=== PATIENT | female | born 1965 | race Caucasian/White ===

== ENCOUNTER 2022-12-23 12:10 | Emergency (ER) | payer BC ==
[~2022-12-23] VITALS: Ht 167.6 cm; Wt 55.8 kg
[2022-12-23] MEDS ORDERED: ondansetron/PF 4mg/2ml inj IV ONE (12:25)
[2022-12-23] MEDS ORDERED: morphine 2 MG/ML inj. syringe IV ONE ×2 (12:25→14:05)
[2022-12-23] MEDS ORDERED: normal saline 1000ml 1,000 ML IV ONE (12:25)
[2022-12-23 12:50] LABS: BASOPHILS # (AUTO) 0.1 X10'3 (0-0.2); BASOPHILS % (AUTO) 0.4 % (0-1); EOSINOPHILS % (AUTO) 0.2 % (0-6); HEMATOCRIT 32.5 % (35.0-45.0); HEMOGLOBIN 10.3 g/dl (12.0-16.0); LYMPHOCYTES % (AUTO) 7.2 % (21-51); MEAN CORPUSCULAR HEMOGLOBIN 25.6 PG (27.0-31.0); MEAN CORPUSCULAR HGB CONC 31.6 g/dL (33.0-36.5); MEAN CORPUSCULAR VOLUME 81.2 FL (78-98); MEAN PLATELET VOLUME 8.6 FL (7.4-10.4); MONOCYTES # (AUTO) 0.5 X10'3 (0-0.9); NEUTROPHILS # (AUTO) 11.9 X10'3 (1.8-7.7); NEUTROPHILS % (AUTO) 88.2 % (42-75); PLATELET COUNT 353 X10'3 (140-440); RED CELL DISTRIBUTION WIDTH 17.6 % (11.5-14.5); WHITE BLOOD COUNT 13.5 X10'3 (4.5-11.0)
[2022-12-23 12:57] LABS: ALANINE AMINOTRANSFERASE 19 U/L (12-78); ALBUMIN 4.4 G/DL (3.4-5.0); ALBUMIN/GLOBULIN RATIO 1.3 (1.1-1.5); ALKALINE PHOSPHATASE 110 IU/L (46-116); ANION GAP 12 (8-16); ASPARTATE AMINO TRANSFERASE 21 U/L (10-37); BILIRUBIN,TOTAL 0.8 MG/DL (0.1-1.0); BLOOD UREA NITROGEN 13 MG/DL (7-18); BUN/CREATININE RATIO 15.9 (10.0-20.0); CALCIUM 10.4 MG/DL (8.5-10.1); CHLORIDE 103 MMOL/L (99-107); CREATININE 0.82 MG/DL (0.40-0.90); GLUCOSE 116 MG/DL (70-104); LIPASE 63 U/L (73-393); POTASSIUM 3.6 MMOL/L (3.5-5.1); SODIUM 139 MMOL/L (135-145); TOTAL CARBON DIOXIDE 24.3 MMOL/L (24-32); TOTAL PROTEIN 7.7 G/DL (6.4-8.2); eGFR 72 ML/MIN
[2022-12-23] MEDS ORDERED: iohexol 300mg/ml 100ml inj. ONE (13:58)
--- NOTE | 2022-12-23 14:00 | NUR ---
PER DR BALLARD ORDER 2MG MORPHINE AND 5MG REGLAN FOR PAIN AND NAUSEA. ORDERS ENTERED.
[2022-12-23] MEDS ORDERED: metoclopramide 5 mg/ml inj IV ONE (14:05)
[2022-12-23 14:39] LABS: BETA HCG,QUANTITATIVE 2 mIU/ml
[2022-12-23 16:01] LABS: CLARITY,URINE CLEAR (Clear); COLOR,URINE YELLOW (Yellow); GLUCOSE, URINE NEGATIVE (Neg); KETONES,URINE 15 mg/dl (Neg); LEUKOCYTE ESTERASE ,URINE NEGATIVE (Neg); NITRITES, URINE NEGATIVE (Neg); OCCULT BLOOD,URINE TRACE-INTACT (Neg); PH,URINE 7.5 (4.8-8.0); PROTEIN,URINE NEGATIVE (Neg); UA COLLECTION TYPE CLN CATCH MIDSTREAM; UROBILINOGEN,URINE 0.2 E.U/dL (0.2-1.0)
[2022-12-23 16:13] LABS: BACTERIA,URINE 1+ /HPF (Neg); SQUAMOUS EPITHELIAL CELL,UR FEW /LPF (FEW)
[2022-12-23] MEDS ORDERED: CefTRIAXone/D5W-Rocephin 1gm 50 ML IV ONE (16:20)
[2022-12-23] MEDS ORDERED: dicyclomine 10 MG capsule PO ONE (16:45)
[2022-12-23] MEDS ORDERED: normal saline 1000ML IV soln IVB ONE (16:45)
[2022-12-23] MEDS ORDERED: morphine 4 MG/ML inj SYRINge IV ONE (16:55)
[2022-12-23] MEDS ORDERED: ONDA4TAB12 PO (18:07)
[2022-12-23] MEDS ORDERED: DICY10CA88 PO (18:07)
[2022-12-23 18:20] VITALS: BP 127/59
== END 2022-12-23 18:22 | disposition home or self-care (01) ==
LOC: ER 12:12
DX: R10.9 Unspecified abdominal pain (principal); R11.2 Nausea with vomiting, unspecified; Z90.710 Acquired absence of both cervix and uterus
CPT/HCPCS: 36415; 74018; 74177; 80053; 81001; 83605; 83690; 84145; 84702; 85025; 87088; 87186; 96361; 96365; 96375; 96376; 99285; J0696; J2270; J2405; J2765; J3490; J7030; Q9967; 87077

== ENCOUNTER 2025-02-19 09:11 | Inpatient (IN) | payer BC ==
[~2025-02-19] VITALS: Ht 167.6 cm; Wt 66.1 kg
[~2025-02-19 09:11] MED LIST: ONDA-243 PO
[2025-02-19 09:51] LABS: BILIRUBIN,URINE SMALL (Neg); CLARITY,URINE CLOUDY (Clear); GLUCOSE, URINE NEGATIVE (Neg); KETONES,URINE 15 mg/dl (Neg); LEUKOCYTE ESTERASE ,URINE NEGATIVE (Neg); OCCULT BLOOD,URINE SMALL (Neg); PH,URINE 5.5 (4.8-8.0); PROTEIN,URINE 100 mg/dl (Neg)
[2025-02-19 09:55] LABS: COLOR,URINE AMBER (Yellow); UA COLLECTION TYPE CLN CATCH MIDSTREAM
[2025-02-19 09:56] LABS: NITRITES, URINE NEGATIVE (Neg)
[2025-02-19 09:57] LABS: AMORPHOUS URATES 1+; BACTERIA,URINE FEW /HPF (Neg); MUCUS STRANDS MANY /LPF (Neg); RBC,URINE 0-2 /HPF (0-2); SQUAMOUS EPITHELIAL CELL,UR FEW /LPF (FEW); WBC,URINE 0-4 /HPF (0-4)
[2025-02-19 09:58] LABS: FINE GRANULAR CAST 0-3 /LPF (NEGATIVE); HYALINE CASTS 0-3 /LPF (NEGATIVE)
[2025-02-19] MEDS: acetaminophen 325mg tablet PO ONE (10:01)
[2025-02-19 10:02] LABS: BASOPHILS % (AUTO) 0.2 % (0-1); EOSINOPHILS % (AUTO) 0.2 % (0-6); HEMATOCRIT 28.8 % (35.0-45.0); HEMOGLOBIN 9.8 g/dl (12.0-16.0); LYMPHOCYTES # (AUTO) 0.6 X10'3 (1.1-4.8); LYMPHOCYTES % (AUTO) 7.7 % (21-51); MEAN CORPUSCULAR HEMOGLOBIN 28.6 PG (27.0-31.0); MEAN CORPUSCULAR HGB CONC 33.9 g/dL (33.0-36.5); MEAN CORPUSCULAR VOLUME 84.2 FL (78-98); MEAN PLATELET VOLUME 7.5 FL (7.4-10.4); MONOCYTES # (AUTO) 0.6 X10'3 (0-0.9); MONOCYTES % (AUTO) 7.7 % (2-12); NEUTROPHILS # (AUTO) 6.5 X10'3 (1.8-7.7); NEUTROPHILS % (AUTO) 84.2 % (42-75); PLATELET COUNT 307 X10'3 (140-440); RED BLOOD COUNT 3.42 X10'6 (4.20-5.60); RED CELL DISTRIBUTION WIDTH 15.8 % (11.5-14.5); WHITE BLOOD COUNT 7.7 X10'3 (4.5-11.0)
[2025-02-19 10:08] LABS: ANION GAP 9 (8-16); BLOOD UREA NITROGEN 14 MG/DL (7-18); BUN/CREATININE RATIO 15.7 (10.0-20.0); CALCIUM 9.9 MG/DL (8.5-10.1); CHLORIDE 100 MMOL/L (99-107); CREATININE 0.89 MG/DL (0.40-0.90); GLUCOSE 120 MG/DL (70-104); POTASSIUM 3.9 MMOL/L (3.5-5.1); SODIUM 134 MMOL/L (135-145); TOTAL CARBON DIOXIDE 24.9 MMOL/L (24-32); eCRCL 65 ML/MIN; eGFR 65 ML/MIN
--- NOTE | 2025-02-19 10:08 | RADIOLOGY REPORT ---
CHEST XRAY: 1 view(s) was obtained HISTORY: sepsis alert COMPARISON: None. FINDINGS: Streaky right lower lobe and right upper lobe opacities. Heart border is normal in size. Minimal calc ification of the aortic arch. No acute osseus abnormality. IMPRESSION: 1. Multifocal bronchopneumonia, most notable in the right lower lobe
--- NOTE | 2025-02-19 10:35 | Physician Documentation ---
History of Present Illness ~ Chief Complaint: Flu Symptoms Stated Complaint: FLU SYMPTOMS Time Seen by MD: 10:13 Primary Medical Doctor: NO PCP Mode of Arrival: POV HPI This is a 59-year-old female who presents with three weeks of progressively worsening cough, nasal congestion and rhinorrhea, body aches, headache, and fever with chills and night sweats. Medication Reconciliation Allergies: Coded Allergies: No Known Allergies (Unverified , 02/19/25) Miscellaneous Medications Home Med List (No Home Medications), (Reported) Discontinued Medications ONDANSETRON ODT 4mg tablet (Ondansetron Odt), 1 TABLET PO TID Discontinued Reason: patient no longer taking Past Medical History Past Medical History: No Pertinent History, Anemia Past Surgical History: hysterectomy Drug Use: none Lives In: Home Review of Systems ROS Cough and fever as stated above in the HPI, otherwise all systems are reviewed and negative. Physical Exam Vital Signs: Temperature: 101.1, Source: Temporal, Heart Rate: 108, Respiratory Rate: 19, BP: 119/66, Pulse Oximetry: 99, Weight: 65.750 Oxygen Flow Rate: 0 Physical Exam VITALS: Reviewed and as above. GENERAL: Alert, nontoxic appearing, no apparent distress. HEENT: PERRLA, EOMI, no cervical lymphadenopathy RESPIRATORY: No increased work of breathing, no respiratory distress, speaking in full clear sentences, rhonchi in right lower lung field CV: Regular rate and rhythm no murmur BACK: No CVA tenderness SKIN: Hot to the touch, no rash Progress Progress Note At 10:47 I spoke with hospitalist attending Dr. Mcnulty who kindly accepts patient for admission Results/Orders Results/Orders Orders - MARIE ANDRES Hospitalist (02/19/25 10:41) Fill Out Med Reconciliation (02/19/25 10:41) Completed Orders - MARIE ANDRES Normal Saline 1000ml (Sodium Chloride 10 (02/19/25 10:25) Azithromycin/Ns 500mg/250ml (Zithromax/N (02/19/25 10:25) Ceftriaxone/G7y-[id number] 1gm (Rocephin 1 (02/19/25 10:25) Vital Signs 02/19/25 02/19/25 02/19/25 09:14 10:06 10:09 Temp 101.1 101.1 Pulse 121 108 Resp 22 19 19 B/P (MAP) 145/61 119/66 (83) Pulse Ox 98 99 O2 Flow Rate 0 0 Laboratory Tests Test 02/19/25 09:26 02/19/25 09:42 02/19/25 09:47 Urine Specimen Description Cln catch midstream Urine Color Alexia Urine Clarity Cloudy Urine pH 5.5 Urine Specific Mobile >=1.030 Urine Protein 100 H Urine Glucose (UA) Negative Urine Ketones 15 H Urine Occult Blood Small Urine Nitrite Negative Urine Bilirubin Small Urine Urobilinogen 1.0 Urine Leukocyte Esterase Negative Urine RBC 0-2 Urine WBC 0-4 Urine Squamous Epithelial Cells Few Urine Amorphous Urates 1+ Urine Bacteria Few Urine Hyaline Casts 0-3 Urine Fine Granular Casts 0-3 Urine Mucus Many Urine Culture Indicated Not ind Volume Urine Centrifuged 10 ml Urine Comment Urine Opiates Screen Negative Urine Methadone Screen Negative Urine Fentanyl Screen Negative Urine Barbiturates Screen Negative Urine Phencyclidine Screen Negative Urine Amphetamines Screen Negative Urine Benzodiazepines Screen Negative Urine Cocaine Screen Negative Urine Cannabinoids Screen Negative Drug Screen Comment SARS-CoV-2 Antigen (Rapid) Negative White Blood Count 7.7 Red Blood Count 3.42 L Hemoglobin 9.8 L Hematocrit 28.8 L Mean Corpuscular Volume 84.2 Mean Corpuscular Hemoglobin 28.6 Mean Corpuscular Hemoglobin Concent 33.9 Red Cell Distribution Width 15.8 H Platelet Count 307 Mean Platelet Volume 7.5 Neutrophils (%) (Auto) 84.2 H Lymphocytes (%) (Auto) 7.7 L Monocytes (%) (Auto) 7.7 Eosinophils (%) (Auto) 0.2 Basophils (%) (Auto) 0.2 Neutrophils # (Auto) 6.5 Lymphocytes # (Auto) 0.6 L Monocytes # (Auto) 0.6 Eosinophils # (Auto) 0.0 Basophils # (Auto) 0.0 CBC Comment Sodium Level 134 L Potassium Level 3.9 Chloride Level 100 Carbon Dioxide Level 24.9 Anion Gap 9 Blood Urea Nitrogen 14 Creatinine 0.89 Estimated GFR/1.73 m2 65 BUN/Creatinine Ratio 15.7 Glucose Level 120 H Lactic Acid Level 1.9 Calcium Level 9.9 Albumin 3.0 L Procalcitonin 2.39 H Chemistry Comments Microbiology Date/Time Source Procedure Growth Status 02/19/25 09:50 Blood Arm Left Blood Culture - Preliminary NEGATIVE (LESS THAN 24 HOURS) Resulted EKG/XRAY/CT/US/VASC/MRI Chest X-Ray : Additional Comments CHEST XRAY: 1 view(s) was obtained HISTORY: sepsis alert COMPARISON: None. FINDINGS: Streaky right lower lobe and right upper lobe opacities. Heart border is normal in size. Minimal calcification of the aortic arch. No acute osseus abnormality. IMPRESSION: 1. Multifocal bronchopneumonia, most notable in the right lower lobe Electronically Signed by:IBIS PANTOJA MD Date & Time: 02/19/25 100 Dictated by: IBIS PANTOJA MD Dictation date and time: 02/19/25937 I have reviewed and agree with the radiology report. I have reviewed and interpreted the imaging as: Focal consolidations in right lower lung little Medical Decision Making Findings This is a previously well 59-year-old female who presents with three weeks of progressively worsening cough, nasal congestion, rhinorrhea, body aches, and fever. Physical exam demonstrated rhonchi in right lower lung little along with x-ray of chest demonstrating focal consolidations in right lower lung little consistent with pneumonia. On exam patient tachycardic, patient would benefit from inpatient admission for IV antibiotics. Prior to admission patient is hemodynamically stable in the emergency department without evidence of hypoxia. Inpatient team contacted and kindly accepts patient for admission. Differential Dx:Considerations: Include: Influenza, Meningitis, Mycardial infarction, Respiratory failure, Sepsis, UTI, Viral Syndrome Departure Disposition: ADMITTED INPATIENT Admitted to Inpatient Unit: to hospitalist Impression: Primary Impression: Pneumonia Qualified Codes: J18.9 - Pneumonia, unspecified organism Condition: Guarded Referrals: NO PRIMARY CARE PROVIDER (PCP) Education Educated: Patient Educated regarding: diagnosis, treatment Signature Scribe Signature: No scribe Attestation: The note accurately reflects work and decisions made by me.GERMAN Koch 02/19/25 21:27 MARIE ANDRES Feb 19, 2025 10:35
[2025-02-19] MEDS ORDERED: magnesium Cl slow-release 64mg tablet PO PRN (10:50)
[2025-02-19] MEDS ORDERED: magnesium sulf-water 2g/50mL 50 ML IV PRN (10:50)
[2025-02-19] MEDS ORDERED: potassium Cl 20 mEq SR tablet PO PRN (10:50)
[2025-02-19] MEDS ORDERED: morphine 2 MG/ML inj. syringe IV PRN (10:50)
[2025-02-19] MEDS ORDERED: ondansetron/PF 4mg/2ml inj IV PRN (10:50)
[2025-02-19] MEDS ORDERED: potassium Cl 40MEQ/1/2NS 520ml 520 ML IV PRN (10:50)
[2025-02-19] MEDS ORDERED: mag hydrox/Alum hydrox/simeth 30ml oral suspension PO PRN (10:50)
[2025-02-19] MEDS ORDERED: magnesium hydroxide 30ml (MOM) UD suspension PO PRN (10:50)
[2025-02-19] MEDS ORDERED: magnesium sulf-water 4G/100mL 100 ML IV PRN (10:50)
--- NOTE | 2025-02-19 10:50 | HISTORY AND PHYSICAL ---
History & Physical Providers to CC ~ History of Present Illness Reason for Admit\Complaint: Pneumonia History of Present Illness Patient is a pleasant 59-year-old female that states that she has been having increasing cough since beginning of January off and on worsening he has been dry. She denies any fevers or chills. Though she did have a fever in the ER of 101. Patient denies any other associated symptoms except a dry hacking cough that will not let her catch her breath. Allergies: Coded Allergies: No Known Allergies (Unverified , 02/19/25) Home Medications Home Medications Active Ondansetron Odt (Ondansetron HCl) 4 Mg Tab.rapdis 1 Tablet PO TID Past Medical History Past Medical History Past medical history anemia Past surgical history tubal ligation partial hysterectomy vaginal delivery after , tubal Allergies are NKDA Social history denies any tobacco or IV drug abuse has tried some stuff when she was a teenager is lives with drinks couple of times in a month on date nights Family history father 93 was just recently discharged from the hospital has AFib CHF COPD Review of systems negative for all 10 systems reviewed Exam Vitals: Vital Signs Date Time Temp Pulse Resp B/P (MAP) Pulse Ox O2 Delivery O2 Flow Rate FiO2 02/19/25 10:09 101.1 108 19 119/66 (83) 99 0 General: She is alert and oriented x4 in no acute distress lying down comfortably speaking in full sentences does have coughing fits in the middle. HEENT normocephalic nontraumatic head PERRLA. EOMI. CVS first and second heart sounds are regular rate rhythm no murmurs gallops or rubs Respiratory system is clear to auscultate bilaterally no rales rhonchi crackles or wheezing Abdomen is soft bowel sounds are positive nontender nondistended Extremities no clubbing cyanosis or edema Neurological exam no focal deficits Skin is warm and intact Peripheral pulses are plus two Diagnostic Data Last Recorded Lab Results: 02/19/25 0947 02/19/25 0947 Additional Plan ASSESSMENT AND PLAN -MULTIFOCAL PNEUMONIA PATIENT PANCULTURED IN THE ER CONTINUE WITH IV ANTIBIOTICS -SEPSIS SECONDARY TO ABOVE CONTINUE WITH IV FLUIDS ELEVATED PROCALCITONIN LEVELS MONITOR -ANEMIA ETIOLOGY UNCLEAR Chronic Check occult cards CHECK MICRO AND MACRO PANEL -STARTED ON DVT PROPHYLAXIS -PATIENT IS A FULL CODE Date of Service: Feb 19, 2025 Billing Provider: AMALIA WREN MD Common Visit Codes: [id number] INP/OBS CARE (HIGH) AMALIA WREN MD Feb 19, 2025 10:50
[2025-02-19] MEDS: normal saline 1000ML IV soln IVB ONE (10:56)
[2025-02-19] MEDS: CefTRIAXone/D5W-Rocephin 1gm 50 ML IV ONE (10:56)
[2025-02-19] MEDS: azithromycin/NS 500mg/250ml 250 ML IV ONE (10:57)
[2025-02-19 11:40] LABS: URINE AMPHETAMINE SCREEN NEGATIVE (Neg); URINE BARBITUATE SCREEN NEGATIVE (Neg); URINE BENZODIAZEPINES SCREEN NEGATIVE (Neg); URINE CANNABINOID SCREEN NEGATIVE (Neg); URINE COCAINE SCREEN NEGATIVE (Neg); URINE METHADONE SCREEN NEGATIVE (Neg); URINE OPIATE SCREEN NEGATIVE (Neg); URINE PHENCYCLIDINE SCREEN NEGATIVE (Neg)
[2025-02-19 12:03] VITALS: BP 101/56; PULSE 94; RESP 17; TEMP 100.8; O2SAT 97
[2025-02-19] MEDS ORDERED: NO HOME MEDS (12:40)
[2025-02-19] MEDS: sodium chloride 0.45% 1,000 ML IV SCH (12:48)
[2025-02-19] MEDS: benzonatate 100mg capsule PO PRN (15:34)
[2025-02-19] MEDS: HYDROcodone/acetaminophen 10/325mg tab PO PRN (15:35)
[2025-02-19 18:00] VITALS: BP 108/64; PULSE 86; RESP 16; TEMP 98.9; O2SAT 96
[2025-02-19 20:00] VITALS: RESP 16; O2SAT 96
[2025-02-19] MEDS: K and/or MAG REPLACEMENT MC SCH (20:00)
[2025-02-19] MEDS: guaiFENesin ER 600mg tablet PO SCH (20:23)
[2025-02-19] MEDS: docusate sod 100mg capsule PO SCH (20:24)
[2025-02-19] MEDS: enoxaparin 40mg/0.4ml syringe SQ SCH (20:25)
[2025-02-19 22:00] VITALS: BP 100/60; PULSE 93; RESP 16; TEMP 100; O2SAT 91
[2025-02-20 06:00] VITALS: BP 111/64; PULSE 83; RESP 16; TEMP 98.9; O2SAT 94
[2025-02-20 06:19] LABS: BASOPHILS % (AUTO) 0.2 % (0-1); EOSINOPHILS % (AUTO) 0.7 % (0-6); HEMATOCRIT 23.6 % (35.0-45.0); HEMOGLOBIN 7.9 g/dl (12.0-16.0); LYMPHOCYTES # (AUTO) 0.8 X10'3 (1.1-4.8); LYMPHOCYTES % (AUTO) 13.6 % (21-51); MEAN CORPUSCULAR HEMOGLOBIN 28.2 PG (27.0-31.0); MEAN CORPUSCULAR HGB CONC 33.4 g/dL (33.0-36.5); MEAN CORPUSCULAR VOLUME 84.6 FL (78-98); MEAN PLATELET VOLUME 8.1 FL (7.4-10.4); MONOCYTES # (AUTO) 0.6 X10'3 (0-0.9); MONOCYTES % (AUTO) 9.9 % (2-12); NEUTROPHILS # (AUTO) 4.7 X10'3 (1.8-7.7); NEUTROPHILS % (AUTO) 75.6 % (42-75); PLATELET COUNT 247 X10'3 (140-440); RED CELL DISTRIBUTION WIDTH 15.9 % (11.5-14.5); WHITE BLOOD COUNT 6.2 X10'3 (4.5-11.0)
[2025-02-20 07:00] LABS: ALANINE AMINOTRANSFERASE 36 U/L (12-78); ALBUMIN 2.3 G/DL (3.4-5.0); ALBUMIN/GLOBULIN RATIO 0.6 (1.1-1.5); ALKALINE PHOSPHATASE 118 IU/L (46-116); ANION GAP 6 (8-16); ASPARTATE AMINO TRANSFERASE 29 U/L (10-37); BILIRUBIN,TOTAL 0.8 MG/DL (0.1-1.0); BLOOD UREA NITROGEN 12 MG/DL (7-18); BUN/CREATININE RATIO 17.9 (10.0-20.0); CHLORIDE 100 MMOL/L (99-107); CREATININE 0.67 MG/DL (0.40-0.90); FERRITIN 130 NG/ML (8-252); GLUCOSE 107 MG/DL (70-104); POTASSIUM 3.5 MMOL/L (3.5-5.1); SODIUM 131 MMOL/L (135-145); TOTAL CARBON DIOXIDE 25.1 MMOL/L (24-32); TOTAL PROTEIN 6.1 G/DL (6.4-8.2); eCRCL 86 ML/MIN; eGFR 90 ML/MIN
[2025-02-20] MEDS: CefTRIAXone/D5W-Rocephin 1gm 50 ML IV SCH (07:21)
[2025-02-20] MEDS: acetaminophen 325mg tablet PO PRN (07:28)
[2025-02-20] MEDS: azithromycin/NS 500mg/250ml 250 ML IV SCH (08:21)
[2025-02-20 10:00] VITALS: BP 103/59; PULSE 82; RESP 15; TEMP 98.2; O2SAT 91
[2025-02-20 11:40] LABS: % IRON SATURATION 6 % (11-46); IRON 15 UG/DL (49-151); TOTAL IRON BINDING CAPACITY 263 UG/DL (259-388)
[2025-02-20] MEDS: guaiFENesin/DM 10ml UD oral syrup PO PRN (16:13)
[2025-02-20 18:00] VITALS: BP 130/73; PULSE 92; RESP 16; TEMP 99.3; O2SAT 94
[2025-02-20 20:00] VITALS: RESP 17; O2SAT 95
--- NOTE | 2025-02-20 21:26 | PROGRESS NOTE ---
Daily Progress Note Providers to CC ~ Antibiotic Timeout Antibiotic Ordered?: Yes Subjective Patient was seen in her room she denied use of any tobacco. Patient is on IV antibiotics wanted to discuss all labs and diagnostic results which I did in visit today. Objective Vital Signs Date Time Temp Pulse Resp B/P (MAP) Pulse Ox O2 Delivery O2 Flow Rate FiO2 02/20/25 20:00 17 95 Room Air 02/20/25 10:00 98.2 82 103/59 (74) 02/20/25 07:30 0.0 Result Diagram: 02/20/25 0552 02/20/25 0552 General-patient not in any acute distress, alert awake oriented, chronically ill-appearing age-appropriate HEENT-atraumatic normocephalic, neck supple without elevated JVD, no thyromegaly or carotid bruit. No lymphadenopathy bilaterally. Eyes-no icterus or pallor seen in eyes Chest-clear to auscultation bilaterally, breathing nonlabored no tachypnea, no wheezing, no crepitation, no crackles. Heart-S1-S2 normal, regular heart rate no murmur Abdomen bowel sounds positive on auscultation, soft nondistended nontender no guarding, no rigidity Skin no active skin rash Neurology-grossly intact, nonfocal alert awake oriented Extremity- no pedal edema able to move all 4 extremities Psychiatry - patient is not confused or agitated cooperated during physical examination Problem\Assessment\Plan ASSESSMENT AND PLAN Multifocal pneumonia we will continue with current IV antibiotics and follow blood cultures Sepsis secondary to multifocal pneumonia We will continue to monitor procalcitonin lactic acid and blood culture -Anemia of chronic disease occult stool testing pending - on DVT prophylaxis -patient is full code Patient's current condition is guarded I will continue to follow patient in AM Date of Service: Feb 20, 2025 Billing Provider: SILVERIO KIRAN MD Common Visit Codes: [id number] INP/OBS CARE(HIGH) SILVERIO KIRAN MD Feb 20, 2025 21:26
[2025-02-20 22:00] VITALS: BP 112/66; PULSE 87; RESP 16; TEMP 98.7; O2SAT 93
[2025-02-21 05:37] LABS: BASOPHILS % (AUTO) 0.2 % (0-1); EOSINOPHILS # (AUTO) 0.1 X10'3 (0-0.9); EOSINOPHILS % (AUTO) 0.8 % (0-6); HEMATOCRIT 24.2 % (35.0-45.0); HEMOGLOBIN 7.9 g/dl (12.0-16.0); LYMPHOCYTES # (AUTO) 0.9 X10'3 (1.1-4.8); LYMPHOCYTES % (AUTO) 13.1 % (21-51); MEAN CORPUSCULAR HEMOGLOBIN 27.7 PG (27.0-31.0); MEAN CORPUSCULAR HGB CONC 32.7 g/dL (33.0-36.5); MEAN CORPUSCULAR VOLUME 84.7 FL (78-98); MEAN PLATELET VOLUME 7.8 FL (7.4-10.4); MONOCYTES # (AUTO) 0.7 X10'3 (0-0.9); NEUTROPHILS # (AUTO) 5.3 X10'3 (1.8-7.7); NEUTROPHILS % (AUTO) 75.9 % (42-75); PLATELET COUNT 303 X10'3 (140-440); RED BLOOD COUNT 2.86 X10'6 (4.20-5.60)
[2025-02-21 06:00] VITALS: BP 115/63; PULSE 83; RESP 16; TEMP 98.3; O2SAT 92
[2025-02-21 06:07] LABS: ALANINE AMINOTRANSFERASE 51 U/L (12-78); ALBUMIN 2.4 G/DL (3.4-5.0); ALBUMIN/GLOBULIN RATIO 0.6 (1.1-1.5); ALKALINE PHOSPHATASE 161 IU/L (46-116); ANION GAP 9 (8-16); ASPARTATE AMINO TRANSFERASE 43 U/L (10-37); BILIRUBIN,TOTAL 0.7 MG/DL (0.1-1.0); BLOOD UREA NITROGEN 9 MG/DL (7-18); BUN/CREATININE RATIO 12.9 (10.0-20.0); CALCIUM 9.3 MG/DL (8.5-10.1); CHLORIDE 102 MMOL/L (99-107); GLUCOSE 95 MG/DL (70-104); POTASSIUM 3.2 MMOL/L (3.5-5.1); SODIUM 137 MMOL/L (135-145); TOTAL CARBON DIOXIDE 25.7 MMOL/L (24-32); TOTAL PROTEIN 6.3 G/DL (6.4-8.2); eCRCL 82 ML/MIN; eGFR 86 ML/MIN
[2025-02-21 08:00] VITALS: RESP 16; O2SAT 93
[2025-02-21 09:06] LABS: TOTAL CELLS COUNTED 100
[2025-02-21 09:07] LABS: PLATELET ESTIMATE NORMAL
[2025-02-21] MEDS: HYDROcodone/acetaminophen 5mg/325mg tablet PO PRN (09:26)
[2025-02-21] MEDS: potassium Cl 20 mEq SR tablet PO PRN (09:26)
[2025-02-21 10:00] VITALS: BP 109/88; PULSE 83; RESP 16; TEMP 99.2; O2SAT 93
[2025-02-21] MEDS ORDERED: LEVO-65 PO (12:20)
[2025-02-21] MEDS ORDERED: BENZ-111 PO (12:20)
[2025-02-21] MEDS ORDERED: GUAI600T45 PO (12:20)
--- NOTE | 2025-02-21 18:19 | DISCHARGE SUMMARY ---
Discharge Summary Providers to CC ~ Discharge Summary Admission Diagnosis: MULTIFOCAL PNEUMONIA Hospital Course DATE OF ADMISSION: February 19, 2025 DATE OF DISCHARGE: February 21, 2025 CBC testing done on February 21, 2025 WBC 7.0 hemoglobin 7.9 hematocrit 24.2 , normal platelet, sed rate 109. Urine drug screen negative. No UTI. Procalcitonin 0.83 improved TIBC 263 serum iron 15. Blood culture showed no growth after two days. CHEST,SINGLE VIEW- IMPRESSION: 1. Multifocal bronchopneumonia, most notable in the right lower lobe Discharge Diagnosis\\Comment: Multifocal pneumonia Sepsis secondary to multifocal pneumonia Anemia of chronic disease Mild hypokalemia Operations\\Procedures: None Consultants: None Complications: None Condition on DC: Stable New Medications: Levofloxacin (Levofloxacin) 500 Mg Tablet 500 MG PO DAILY for 5 Days, #5 TAB Benzonatate (Benzonatate) 100 Mg Capsule 100 MG PO Q8H PRN for cough for 7 Days, #20 CAP Guaifenesin (Mucinex) 600 Mg Tablet.sa 1200 MG PO Q12H for 7 Days, #14 TAB.SR Discontinued Medications: Home Med List (No Home Medications) Each Discharge Summary: As per admitting hospitalist history and physical note" Patient is a pleasant 59-year-old female that states that she has been having increasing cough since beginning of January off and on worsening he has been dry. She denies any fevers or chills. Though she did have a fever in the ER of 101. Patient denies any other associated symptoms except a dry hacking cough that will not let her catch her breath." During hospitalization patient was treated Multifocal pneumonia - continued with current IV antibiotics and follow blood cultures Sepsis secondary to multifocal pneumonia We continued to monitor procalcitonin lactic acid and blood culture -Anemia of chronic disease occult stool testing pending - on DVT prophylaxis -patient is full code discussed with the patient in visit by admitting provider Patient's clinical condition improved and she is feeling much better. Patient was advised to follow with seed specialist for her anemia of chronic disease. She has been afebrile getting discharged home in stable condition. Patient is seen and examined on the day of discharge discharge instructions provided to the patient all questions and concerns answered to the best of my professional medical knowledge.Please follow-up with primary care physician in outpatient setting and repeat CBC procalcitonin sed rate in five days. Repeat x-ray chest in four weeks. Activity as tolerated General-patient not in any acute distress, alert awake oriented, chronically ill-appearing age-appropriate HEENT-atraumatic normocephalic, neck supple without elevated JVD, no thyromegaly or carotid bruit. No lymphadenopathy bilaterally. Eyes-no icterus or pallor seen in eyes Chest-clear to auscultation bilaterally, breathing nonlabored no tachypnea, no wheezing, no crepitation, no crackles. Heart-S1-S2 normal, regular heart rate no murmur Abdomen bowel sounds positive on auscultation, soft nondistended nontender no guarding, no rigidity Skin no active skin rash Neurology-grossly intact, nonfocal alert awake oriented Extremity- no pedal edema able to move all 4 extremities Psychiatry - patient is not confused or agitated cooperated during physical examination *Problems/Diagnosis: (1) Pneumonia Status: Acute Total Time Spent on D/C: > 30 Minutes Date of Service: Feb 21, 2025 Billing Provider: SILVERIO KIRAN MD Common Visit Codes: 09465-XZB/OBS DISCH DAY >30min Problem Qualifiers (1) Pneumonia: Qualified Codes: J18.9 - Pneumonia, unspecified organism SILVERIO KIRAN MD Feb 21, 2025 18:19
== END 2025-02-21 16:04 | disposition home or self-care (01) | DRG 871 ==
LOC: ER 09:11 → ED HOLD 10:56 → ORTHO 4S 11:50
PROVIDERS: ADMIT Internal Medicine; ATTEND Internal Medicine
DX: A41.9 Sepsis, unspecified organism (principal); J18.9 Pneumonia, unspecified organism; E87.6 Hypokalemia; Z20.822 Contact with and (suspected) exposure to COVID-19; D63.8 Anemia in other chronic diseases classified elsewhere; Z90.711 Acquired absence of uterus with remaining cervical stump; Z98.51 Tubal ligation status
CPT/HCPCS: 36415; 71045; 80048; 80053; 80305; 81001; 82607; 82728; 83540; 83550; 83605; 83735; 84145; 85007; 85025; 85651; 87040; 87081; 87811; 96374; 99285; G0378; J0456; J0696; J1650; J3490; J7030